=== PATIENT | male | born 1990 | race Hispanic/Latino ===

== ENCOUNTER 2021-10-02 17:26 | Emergency (ER) | payer OTHER ==
[~2021-10-02] VITALS: Ht 167.6 cm; Wt 69.4 kg
[2021-10-02 17:29] VITALS: BP 145/93
== END 2021-10-02 22:35 | disposition left against medical advice (07) ==
LOC: EDH 17:26
DX: R09.81 Nasal congestion (principal); R05.9 Cough, unspecified; Z53.21 Procedure and treatment not carried out due to patient leaving prior to being seen by health care provider